=== PATIENT | male | born 1945 | race Caucasian/White ===

== ENCOUNTER 2024-01-03 10:45 | Emergency (ER) | payer MEDICARE ==
[2024-01-03] MEDS ORDERED: predniSONE 20 MG TAB ONE (11:18)
[2024-01-03] MEDS ORDERED: Famotidine 20 MG TAB ONE (11:19)
== END 2024-01-03 11:30 | disposition home or self-care (01) ==
LOC: NAV ERS 10:45
DX: L25.9 Unspecified contact dermatitis, unspecified cause (principal); I10 Essential (primary) hypertension; E78.00 Pure hypercholesterolemia, unspecified; Z87.891 Personal history of nicotine dependence; Z79.899 Other long term (current) drug therapy; Z95.5 Presence of coronary angioplasty implant and graft
CPT/HCPCS: 99282; J7512